=== PATIENT | female | born 1970 | race Caucasian/White ===

== ENCOUNTER → 2018-04-25 | Outpatient (CLI) | payer MEDICARE, MEDICAID ==
[~2018-04-25] MED LIST: CELEXA40 MG PO; COUMADIN 1MG1 MG/TAB PO; COUMADIN 5MG5 MG/TAB PO; COUMADIN 6MG6 MG/TAB PO; DEPO-PROVER400 MG/ML; NORCO 325 MG-7.1 TAB PO; ZITHROMAX 250M250 MG PO; ZITHROMAX500 M2 PO
== END ==
LOC: MC.RAD 08:40
DX: Z12.31 Encounter for screening mammogram for malignant neoplasm of breast (principal)

== ENCOUNTER → 2020-04-24 | Outpatient (CLI) | payer MEDICARE, MEDICAID | LOC: MC.RAD 14:30 | DX: Z12.31 Encounter for screening mammogram for malignant neoplasm of breast (principal) ==

== ENCOUNTER → 2024-01-24 | Outpatient (CLI) | payer MEDICARE, MEDICAID | LOC: COL.RAD 08:44 | DX: K76.0 Fatty (change of) liver, not elsewhere classified (principal); K80.20 Calculus of gallbladder without cholecystitis without obstruction ==

== ENCOUNTER → 2024-03-26 | Outpatient (CLI) | payer MEDICARE | LOC: MC.RAD 10:43 | DX: Z12.31 Encounter for screening mammogram for malignant neoplasm of breast (principal) ==